=== PATIENT | female | born 1995 | race Caucasian/White ===

== ENCOUNTER 2016-07-24 14:27 | Emergency (ER) | payer OTHER ==
[2016-07-24 15:13] LABS: BILIRUBIN NEGATIVE (NEGATIVE); BLOOD TRACE-LYSED Ery/uL (NEGATIVE); CLARITY CLEAR (CLEAR); COLOR YELLOW (YELLOW); GLUCOSE (U) NORMAL (NORMAL); KETONE (U) NEGATIVE (NEGATIVE); LEUKOCYTES NEGATIVE Leu/uL (NEGATIVE); NITRITE NEGATIVE (NEGATIVE); PROTEIN NEGATIVE (NEGATIVE); SPECIFIC GRAVITY 1.015 (1.001-1.030); UROBILINOGEN 0.2 mg/dL (0.2-1.0); pH 6.5 (5.0-9.0)
[2016-07-24 15:23] LABS: BACTERIA TRACE; SQUAMOUS EPITHELIAL CELLS RARE; URINARY RBC RARE; URINARY WBC RARE
[2016-07-24 15:31] LABS: BASOPHIL 0.2 % (0-2); HCT 39.5 % (37.0-47.0); HGB 13.7 g/dl (12.5-16.0); LYMPHOCYTE 28.4 % (15-48); MCH 28.8 pg (25.0-31.0); MCHC 34.7 g/dL (32.0-36.0); MCV 83.2 fL (78.0-100.0); MONOCYTE 6.4 % (0-12); PLT 192 K/uL (150-400); RBC 4.75 M/uL (4.20-5.40); RDW 12.8 % (11.5-14.0); WBC 6.1 K/uL (4.0-10.5)
[2016-07-24 15:42] LABS: ALBUMIN 4.5 g/dL (3.5-5.0); BILIRUBIN - TOTAL 0.4 mg/dL (0.1-1.0); CREATININE 0.7 mg/dL (0.5-1.0); GLOBULIN (CALCULATION) 2.9 g/dL (2.2-4.2); POTASSIUM 4.1 mmol/L (3.5-5.1); TOTAL PROTEIN 7.4 g/dL (6.4-8.3)
== END 2016-07-24 17:01 | disposition home or self-care (01) ==
LOC: FER 14:27
PROVIDERS: Nurse Practitioner
DX: R10.31 Right lower quadrant pain (principal); R19.7 Diarrhea, unspecified; Z87.42 Personal history of other diseases of the female genital tract; Z88.1 Allergy status to other antibiotic agents
CPT/HCPCS: 36415; 80053; 81001; 82150; 83690; 85025; J1885; Q9967

== ENCOUNTER 2021-09-16 15:34 | Emergency (ER) | payer OTHER ==
[2021-09-16] MEDS ORDERED: BUPROPION HCL150 M1 PO (15:57)
[2021-09-16] MEDS ORDERED: HYDROXYZINE HCL25 MG PO (15:57)
[2021-09-16 16:39] LABS: BASOPHIL 0.4 % (0-2); EOSINOPHIL 2.5 % (0-5); HCT 38.7 % (37.0-47.0); HGB 12.8 g/dl (12.5-16.0); MCH 27.1 pg (25.0-31.0); MCHC 33.1 g/dL (32.0-36.0); MONOCYTE 7.8 % (0-12); MPV 10.7 fL (6.0-9.5); NEUTROPHIL 46.9 % (41-80); NRBC 0; PLT 200 K/uL (150-400); RBC 4.72 M/uL (4.20-5.40); RDW 12.9 % (11.5-14.0); WBC 5.6 K/uL (4.0-10.5)
[2021-09-16 16:47] LABS: CORONAVIRUS 2019 SARS-COV-2 NEGATIVE (NEGATIVE); INFLUENZA A NAA NEGATIVE (NEGATIVE)
[2021-09-16 16:51] LABS: ALBUMIN 3.9 g/dL (3.4-5.0); BILIRUBIN - TOTAL 0.3 mg/dL (0.2-1.0); BUN/CREAT RATIO (CALC) 17.9 RATIO; CREATININE 0.67 mg/dL (0.51-0.95); TOTAL PROTEIN 6.9 g/dL (6.4-8.2)
[2021-09-16 17:03] LABS: BILIRUBIN NEGATIVE (NEGATIVE); BLOOD NEGATIVE Ery/uL (NEGATIVE); CLARITY CLEAR (CLEAR); COLOR YELLOW (YELLOW); GLUCOSE (U) NORMAL (NORMAL); LEUKOCYTES NEGATIVE Leu/uL (NEGATIVE); NITRITE NEGATIVE (NEGATIVE); PROTEIN NEGATIVE (NEGATIVE); SPECIFIC GRAVITY >=1.030 (1.001-1.030); UROBILINOGEN 0.2 mg/dL (0.2-1.0)
== END 2021-09-16 18:08 | disposition home or self-care (01) ==
LOC: FER 15:34
PROVIDERS: Nurse Practitioner Family
DX: B34.9 Viral infection, unspecified (principal); Z20.822 Contact with and (suspected) exposure to COVID-19; Z88.1 Allergy status to other antibiotic agents
CPT/HCPCS: 36415; 71045; 80053; 81003; 82150; 83690; 85025; 87880; U0002